=== PATIENT | female | born 1955 | race American Indian/Alaskan Native ===

== ENCOUNTER 2017-08-02 09:07 | Outpatient (CLI) | payer MEDICARE, OTHER ==
--- NOTE | 2017-08-02 11:39 | XRay Report ---
XRAY BILATERAL KNEE 3 VIEWS EACH: 08/02/17 09:07:00 CLINICAL: Pain. FINDINGS: Right: Mild osteopenia. Medial joint space narrowing with small osteophytes. Complete loss of the joint space with standing. The lateral joint space is normal. Patellofemoral joint osteoarthritis with narrowing of the joint and osteophytes. No fracture or dislocation. No joint effusion. Normal soft tissues. Left: Mild osteopenia. Medial joint space narrowing with small osteophytes. Complete loss of the joint space with standing. The lateral joint space is normal. Patellofemoral joint osteoarthritis with narrowing of the joint and osteophytes. No fracture or dislocation. No joint effusion.Normal soft tissues. 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
== END 2017-08-02 09:08 | disposition home or self-care (01) ==
LOC: SPVIMAG 09:07
PROVIDERS: ATTEND Orthopaedic Surgery Sports Medicine
DX: M17.0 Bilateral primary osteoarthritis of knee (principal); M85.861 Other specified disorders of bone density and structure, right lower leg; M85.862 Other specified disorders of bone density and structure, left lower leg